=== PATIENT | male | born 1995 | race Hispanic/Latino ===

== ENCOUNTER 2018-11-29 18:07 | Inpatient (IN) | payer BC ==
[~2018-11-29] VITALS: Ht 175.3 cm; Wt 111.1 kg
[2018-11-29] MEDS ORDERED: KETOROLAC TROMETHAMINE 30MG/ML ONE (19:01)
[2018-11-29] MEDS ORDERED: SODIUM CHLORIDE 0.9% 1000ML 1,000 ML IV ONE (19:01)
[2018-11-29 19:08] LABS: BASOPHILS % (AUTO) 0.6 % (0.0-5.0); EOSINOPHILS % (AUTO) 0.4 % (0.0-8.0); HEMATOCRIT 46.3 % (42-54); LYMPHOCYTES % (AUTO) 7.9 % (21.0-51.0); MEAN CORPUSCULAR HEMOGLOBIN 29.1 pg (27.0-33.0); MEAN CORPUSCULAR VOLUME 85.5 fL (79-99); MONOCYTES % (AUTO) 3.7 % (3.0-13.0); NEUTROPHILS % (AUTO) 87.4 % (40.0-77.0); PLATELET COUNT (AUTO) 402 K/uL (130-400); RED BLOOD CELL COUNT(AUTO) 5.42 MIL/uL (4.50-6.20); RED CELL DISTRIBUTION WIDTH 13.2 % (11.0-15.5); WHITE BLOOD COUNT (AUTO) 15.2 K/uL (4.8-10.8)
[2018-11-29 19:14] LABS: BILIRUBIN,URINE Negative (NEGATIVE); COLOR,URINE Yellow (YELLOW); GLUCOSE, URINE (UA) Negative (NEGATIVE); KETONES,URINE Trace mg/dL (NEGATIVE); LEUKOCYTE ESTERASE ,URINE Negative (NEGATIVE); NITRATE,URINE Negative (NEGATIVE); OCCULT BLOOD,URINE Negative (NEGATIVE); PROTEIN,URINE Negative (NEGATIVE)
[2018-11-29 19:17] LABS: APPEARANCE,URINE CLEAR (CLEAR)
[2018-11-29 19:34] LABS: ALBUMIN 4.1 g/dL (3.5-5.0); BILIRUBIN,TOTAL 0.4 mg/dL (0.2-1.0); CREATININE 0.8 mg/dL (0.5-1.5); POTASSIUM 3.7 mmol/L (3.5-5.1); TOTAL PROTEIN, SERUM 8.8 g/dL (6.0-8.3)
[2018-11-29] MEDS ORDERED: IOHEXOL-350 75 ML VIAL IV ONE (19:38)
[2018-11-29] MEDS ORDERED: METRONIDAZOLE 500MG/100ML BAG 100 ML ONE (20:46)
[2018-11-29] MEDS ORDERED: LEVOFLOXACIN 500 MG/D5W 100 ML 100 ML ONE (20:50)
[2018-11-29] MEDS ORDERED: MORPHINE SULFATE 4 MG/1ML SYG ONE (20:50)
[2018-11-29] MEDS ORDERED: ONDANSETRON HCL 4 MG/2 ML VIAL ONE (20:50)
[2018-11-29] MEDS ORDERED: 1/2 NORMAL SALINE 1,000 ML IV ONE (23:27)
[2018-11-30] MEDS ORDERED: METRONIDAZOLE 500MG/100ML BAG 100 ML ONE ×2 (05:04→13:56)
[2018-11-30 05:25] LABS: BASOPHILS % (AUTO) 0.6 % (0.0-5.0); EOSINOPHILS % (AUTO) 1.2 % (0.0-8.0); HEMATOCRIT 41.8 % (42-54); MEAN CORPUSCULAR HGB CONC 33.9 g/dL (32.0-36.0); MEAN CORPUSCULAR VOLUME 85.8 fL (79-99); MONOCYTES % (AUTO) 8.3 % (3.0-13.0); NEUTROPHILS % (AUTO) 75.9 % (40.0-77.0); PLATELET COUNT (AUTO) 330 K/uL (130-400); RED BLOOD CELL COUNT(AUTO) 4.88 MIL/uL (4.50-6.20); RED CELL DISTRIBUTION WIDTH 13.4 % (11.0-15.5); WHITE BLOOD COUNT (AUTO) 10.4 K/uL (4.8-10.8)
[2018-11-30 05:30] LABS: CREATININE 0.8 mg/dL (0.5-1.5); POTASSIUM 3.5 mmol/L (3.5-5.1)
[2018-11-30] MEDS ORDERED: MORPHINE SULFATE 5 MG/ML VIAL IM PRN (15:00)
[2018-11-30 15:02] VITALS: BP 116/69
--- NOTE | 2018-11-30 15:31 | NUR ---
DCP CM met with pt discussed dc plans. Pt is independent prior to admission, lives at home with parents. Denies any equipments/services. Pt feels safe to go back, still drives and works, parents able to assist with transportation and needs as necessary. DC plan to home once stable. CM to cont to follow up. Addendum: 11/30/18 at 1533 by JOANIE GONSALES LVN CM Amended: Links added.
[2018-11-30 19:00] VITALS: BP 124/70
[2018-11-30] MEDS: 1/2 NORMAL SALINE 1,000 ML IV SCH (19:40)
[2018-11-30] MEDS: LEVOFLOXACIN 500 MG/D5W 100 ML 100 ML IV SCH (22:07)
[2018-11-30] MEDS: METRONIDAZOLE 500MG/100ML BAG 100 ML IVPB SCH (23:10)
[2018-12-01 00:02] VITALS: BP 125/71
[2018-12-01 04:00] VITALS: BP 123/76
[2018-12-01 05:02] LABS: HEMATOCRIT 40.4 % (42-54); MEAN CORPUSCULAR HEMOGLOBIN 29.1 pg (27.0-33.0); MEAN CORPUSCULAR HGB CONC 33.7 g/dL (32.0-36.0); MEAN CORPUSCULAR VOLUME 86.3 fL (79-99); NUCLEATED RED BLOOD CELLS 0.1 % (0.0-0.19); PLATELET COUNT (AUTO) 319 K/uL (130-400); RED BLOOD CELL COUNT(AUTO) 4.68 MIL/uL (4.50-6.20); RED CELL DISTRIBUTION WIDTH 13.3 % (11.0-15.5); WHITE BLOOD COUNT (AUTO) 6.7 K/uL (4.8-10.8)
[2018-12-01 05:12] LABS: BILIRUBIN,TOTAL 1.1 mg/dL (0.2-1.0); CREATININE 0.7 mg/dL (0.5-1.5); POTASSIUM 3.2 mmol/L (3.5-5.1)
[2018-12-01] MEDS: METRONIDAZOLE 500MG/100ML BAG 100 ML IVPB SCH ×2 (06:14→16:30)
[2018-12-01 08:00] VITALS: BP 108/66
[2018-12-01] MEDS ORDERED: TAMS0.4C32 PO (08:20)
[2018-12-01] MEDS ORDERED: ONDA4TAB10 PO (08:20)
[2018-12-01] MEDS ORDERED: LINA290C PO (08:20)
[2018-12-01] MEDS ORDERED: DEXL60CA3 PO (08:20)
[2018-12-01] MEDS ORDERED: LACT10SO PO (08:20)
[2018-12-01] MEDS ORDERED: TAMSULOSIN HCL 0.4 MG CAP.ER.24H PO PRN (08:30)
[2018-12-01] MEDS ORDERED: LINZESS PO PRN (08:30)
[2018-12-01] MEDS ORDERED: ONDANSETRON ODT 4 MG TAB PO PRN (08:30)
[2018-12-01] MEDS ORDERED: PANTOPRAZOLE SODIUM 40 MG TABLET.DR PO SCH (10:00)
[2018-12-01] MEDS ORDERED: LACTULOSE 20 GM/30 ML UDCUP PO SCH (10:30)
[2018-12-01 11:00] VITALS: BP 126/83
[2018-12-01] MEDS: 1/2 NORMAL SALINE 1,000 ML IV SCH (12:14)
[2018-12-01 16:00] VITALS: BP 104/74
--- NOTE | 2018-12-01 20:00 | NUR ---
SHIFT ASSESSMENT PT IS AWAKE,ALERT AND ORIENTED X3, VOICES NO COMPLAINTS OF PAIN, TOLERATING DIET, DENIES N/V, STATES HAD BOWEL MOVEMENT TODAY, MOTHER AT BEDSIDE, PLAN OF CARE DISCUSSED CALL GUERRERO WITHIN REACH.
[2018-12-01 20:20] VITALS: BP 127/77
[2018-12-01] MEDS: LEVOFLOXACIN 500 MG/D5W 100 ML 100 ML IV SCH (22:51)
[2018-12-02] VITALS: BP 126/71
[2018-12-02] MEDS: 1/2 NORMAL SALINE 1,000 ML IV SCH ×2 (00:21→03:35)
[2018-12-02] MEDS: METRONIDAZOLE 500MG/100ML BAG 100 ML IVPB SCH ×2 (00:21→05:41)
[2018-12-02 04:00] VITALS: BP 118/70
--- NOTE | 2018-12-02 07:55 | NUR ---
patient discharged home by admitting and d/c nurse patient in no distress, unable to do a full head to toe assessment as patient was discharged early and cleared by distribution designer nurse ALMA ROSA [place].
[2018-12-02 08:46] VITALS: BP 101/62
== END 2018-12-02 09:02 | disposition home or self-care (01) | DRG 392 ==
LOC: EDH 18:07 → OBSVTOIN 20:55 → EDHIP 20:55 → 4BH 11-30 14:03
PROVIDERS: ADMIT Internal Medicine; ATTEND Internal Medicine
DX: K57.32 Diverticulitis of large intestine without perforation or abscess without bleeding (principal); K58.9 Irritable bowel syndrome, unspecified; K59.09 Other constipation; Z90.49 Acquired absence of other specified parts of digestive tract; Z88.0 Allergy status to penicillin
CPT/HCPCS: 36415; 74177; 80048; 80053; 81003; 83690; 85025; 85027; G0378; J1885; J1956; J2270; J2405; J3490; J7030; Q9967

== ENCOUNTER 2019-09-24 19:35 | Emergency (ER) | payer BC ==
[~2019-09-24 19:35] MED LIST: DEXL60CA3 PO; LACT10SO PO; LINA290C PO; ONDA4TAB10 PO; TAMS0.4C32 PO
[2019-09-24] MEDS ORDERED: ACETAMINOPHEN EXTRA STRENGTH 500 MG TABLET ONE (20:01)
[2019-09-24] MEDS ORDERED: KETOROLAC TROMETHAMINE 30MG/ML ONE (20:01)
[2019-09-24] MEDS ORDERED: SODIUM CHLORIDE 0.9% 1000ML 1,000 ML IV ONE (20:02)
[2019-09-24] MEDS ORDERED: ONDANSETRON HCL 4 MG/2 ML VIAL ONE (20:07)
[2019-09-24 20:20] LABS: BASOPHILS % (AUTO) 0.5 % (0.0-5.0); EOSINOPHILS % (AUTO) 0.2 % (0.0-8.0); HEMATOCRIT 43.2 % (42-54); LYMPHOCYTES % (AUTO) 14.2 % (21.0-51.0); MEAN CORPUSCULAR HEMOGLOBIN 29.3 pg (27.0-33.0); MEAN CORPUSCULAR HGB CONC 33.8 g/dL (32.0-36.0); MEAN CORPUSCULAR VOLUME 86.6 fL (79-99); MONOCYTES % (AUTO) 9.7 % (3.0-13.0); PLATELET COUNT (AUTO) 372 K/uL (130-400); RED BLOOD CELL COUNT(AUTO) 4.99 MIL/uL (4.50-6.20); RED CELL DISTRIBUTION WIDTH 12.6 % (11.0-15.5); WHITE BLOOD COUNT (AUTO) 12.5 K/uL (4.8-10.8)
[2019-09-24 20:38] LABS: APPEARANCE,URINE Clear (CLEAR); BILIRUBIN,URINE Negative (NEGATIVE); COLOR,URINE Yellow (YELLOW); GLUCOSE, URINE (UA) Negative (NEGATIVE); KETONES,URINE 15 mg/dL (NEGATIVE); LEUKOCYTE ESTERASE ,URINE Negative (NEGATIVE); NITRATE,URINE Negative (NEGATIVE); OCCULT BLOOD,URINE Negative (NEGATIVE); PROTEIN,URINE Negative (NEGATIVE)
[2019-09-24 21:03] LABS: INR 1.02 (0.85-1.15); PARTIAL THROMBOPLASTIN TIME 31.2 SEC (26.3-35.5); PROTHROMBIN TIME 10.7 SEC (9.6-11.6)
[2019-09-24 21:39] LABS: CREATININE 0.8 mg/dL (0.5-1.5); POTASSIUM 3.9 mmol/L (3.5-5.1)
[2019-09-24 21:44] LABS: ALBUMIN 4.1 g/dL (3.5-5.0); BILIRUBIN,TOTAL 1.2 mg/dL (0.2-1.0); TOTAL PROTEIN, SERUM 7.9 g/dL (6.0-8.3)
[2019-09-24] MEDS ORDERED: IOHEXOL-350 75 ML VIAL IV ONE (21:48)
[2019-09-24] MEDS ORDERED: METRONIDAZOLE 500 MG TABLET ONE (22:44)
[2019-09-24] MEDS ORDERED: LEVOFLOXACIN 500 MG TABLET ONE (22:44)
== END 2019-09-24 23:02 | disposition home or self-care (01) ==
LOC: EDH 19:35
DX: K57.32 Diverticulitis of large intestine without perforation or abscess without bleeding (principal); Z88.0 Allergy status to penicillin
CPT/HCPCS: 36415; 71045; 74177; 76870; 80053; 81003; 82948; 83605; 84484; 85025; 85610; 85730; 87040 ×2; 87077; 87088; 87186; 87486; 87797; 87804 ×2; 96374; 96375; 99285; J1885; J2405; J7030; Q9967

== ENCOUNTER 2019-12-11 21:43 | Emergency (ER) | payer BC ==
[2019-12-11] MEDS ORDERED: ONDANSETRON HCL 4 MG/2 ML VIAL ONE (22:51)
[2019-12-11] MEDS ORDERED: KETOROLAC TROMETHAMINE 30MG/ML ONE (22:51)
[2019-12-11 23:13] LABS: BASOPHILS % (AUTO) 0.4 % (0.0-5.0); EOSINOPHILS % (AUTO) 0.3 % (0.0-8.0); HEMATOCRIT 42.7 % (42-54); LYMPHOCYTES % (AUTO) 9.9 % (21.0-51.0); MEAN CORPUSCULAR HEMOGLOBIN 28.8 pg (27.0-33.0); MEAN CORPUSCULAR HGB CONC 33.5 g/dL (32.0-36.0); MEAN CORPUSCULAR VOLUME 86.1 fL (79-99); MONOCYTES % (AUTO) 5.2 % (3.0-13.0); NEUTROPHILS % (AUTO) 83.9 % (40.0-77.0); PLATELET COUNT (AUTO) 376 K/uL (130-400); RED BLOOD CELL COUNT(AUTO) 4.96 MIL/uL (4.50-6.20); RED CELL DISTRIBUTION WIDTH 12.7 % (11.0-15.5); WHITE BLOOD COUNT (AUTO) 15.1 K/uL (4.8-10.8)
[2019-12-11 23:23] LABS: CREATININE 0.8 mg/dL (0.5-1.5); POTASSIUM 3.5 mmol/L (3.5-5.1)
[2019-12-11 23:25] LABS: INR 0.94 (0.85-1.15); PARTIAL THROMBOPLASTIN TIME 27.5 SEC (26.3-35.5); PROTHROMBIN TIME 10.2 SEC (9.6-11.6)
[2019-12-11 23:30] LABS: ALBUMIN 3.8 g/dL (3.5-5.0); BILIRUBIN,TOTAL 0.5 mg/dL (0.2-1.0); TOTAL PROTEIN, SERUM 8.4 g/dL (6.0-8.3)
[2019-12-11 23:47] LABS: APPEARANCE,URINE Clear (CLEAR); BILIRUBIN,URINE Negative (NEGATIVE); COLOR,URINE Yellow (YELLOW); GLUCOSE, URINE (UA) Negative (NEGATIVE); KETONES,URINE Trace mg/dL (NEGATIVE); LEUKOCYTE ESTERASE ,URINE Negative (NEGATIVE); NITRATE,URINE Negative (NEGATIVE); OCCULT BLOOD,URINE Negative (NEGATIVE); PH,URINE 7.5 (5.0-8.0); PROTEIN,URINE Negative (NEGATIVE)
== END 2019-12-12 00:35 | disposition home or self-care (01) ==
LOC: EDH 21:43
DX: K57.32 Diverticulitis of large intestine without perforation or abscess without bleeding (principal); R11.2 Nausea with vomiting, unspecified; Z88.0 Allergy status to penicillin
CPT/HCPCS: 36415; 74176; 80053; 81003; 82150; 83690; 85025; 85610; 85730; 96374; 96375; 99284; J1885; J2405